=== PATIENT | female | born 1990 | race Caucasian/White ===

== ENCOUNTER 2017-07-02 13:29 | Emergency (ER) | payer BC, MEDICAID ==
--- NOTE | 2017-07-02 14:36 | EDM.PDOC ---
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 Time Seen by Provider: 07/02/17 14:25 Source of Information: Reports: Patient History Limitations: Reports: No Limitations - History of Present Illness INITIAL COMMENTS - FREE TEXT/NARRATIVE: 26 yo female blood type O, RH negative presents with vaginal bleeding/clots early in a . Has not yet had an OB visit. Menses historically are very irregular so is not sure how far along she is. Doesn't know the blood type of the father. Has some pelvic and low back discomfort. 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 Musculoskeletal History: Reports: Fracture, Other (See Below) Other Musculoskeletal History: fractured skull as child Neurological History: Reports: Headaches, Chronic Social & Family History - Tobacco Use Smoking Status *Q: Never Smoker - Recreational Drug Use Recreational Drug Use: No ED ROS GENERAL - Review of Systems Review Of Systems: See Below Constitutional: Reports: No Symptoms HEENT: Reports: No Symptoms Respiratory: Reports: No Symptoms Cardiovascular: Reports: No Symptoms GI/Abdominal: Reports: Abdominal Pain (low abdominal cramps). Denies: Black Stool, Bloody Stool, Constipation, Diarrhea : Reports: No Symptoms Musculoskeletal: Reports: No Symptoms Skin: Reports: No Symptoms Neurological: Reports: No Symptoms Psychiatric: Reports: No Symptoms ED EXAM - Physical Exam Exam: See Below Exam Limited By: No Limitations General Appearance: Alert, WD/WN, No Apparent Distress Eye Exam: Bilateral Eye: Normal Inspection Ears: Normal External Exam, Normal Canal Nose: Normal Inspection, Normal Mucosa, No Blood Throat/Mouth: Normal Inspection Head: Atraumatic, Normocephalic Neck: Normal Inspection Respiratory/Chest: No Respiratory Distress, Lungs Clear, Normal Breath Sounds Cardiovascular: Regular Rate, Rhythm GI/Abdominal Exam: Soft Back Exam: Normal Inspection Extremities: Normal Inspection, Normal Range of Motion, Non-Tender Neurological: Alert, Oriented, CN II-XII Intact, Normal Cognition Psychiatric: Normal Affect, Normal Mood Skin Exam: Warm, Dry, Intact, Normal Color, No Rash Course - Vital Signs Text/Narrative:: Pelvic US-pending miscarriage, no ectopic Last Recorded V/S: Last Vital Signs Temp 36.4 C 07/02/17 14:07 Pulse 89 07/02/17 14:07 Resp 16 07/02/17 14:07 BP 138/78 07/02/17 14:07 Pulse Ox 100 07/02/17 14:07 - Orders/Labs/Meds Orders: Active Orders 24 hr Category Date Time Status OB Transvaginal [US] Stat Exams 07/02/17 14:56 Taken HCG QUALITATIVE,URINE [URCHEM] Stat Lab 07/02/17 14:37 Ordered RH IMMUNE GLOBULIN [BBK] Stat Lab 07/02/17 14:34 Results RHOGAM, MISCARRIAGE [RHIG WORKUP, MISCARRIAGE] [BBK] Lab 07/02/17 14:34 Results Stat UA W/MICROSCOPIC [URIN] Stat Lab 07/02/17 14:37 Ordered Labs: Laboratory Tests 07/02/17 07/02/17 07/02/17 Range/Units 14:34 14:37 14:37 Urine Color Yellow Urine Appearance Clear Urine pH 5.0 (4.5-8.0) Ur Specific [place] 1.020 (1.008-1.030) Urine Protein Negative (NEGATIVE) mg/dL Urine Glucose (UA) Normal (NEGATIVE) mg/dL Urine Ketones Negative (NEGATIVE) mg/dL Urine Occult Blood Negative (NEGATIVE) Urine Nitrite Negative (NEGATIVE) Urine Bilirubin Negative (NEGATIVE) Urine Urobilinogen Normal (NORMAL) mg/dL Ur Leukocyte Esterase Negative (NEGATIVE) Urine RBC Not seen (0-5) Urine WBC Not seen (0-5) Ur Epithelial Cells Few Amorphous Sediment Not seen Urine Bacteria Few Urine Mucus Not seen Urine HCG, Qual Positive H Blood Type (Referred) O neg Rhogam Indicated Yes Departure - Departure Time of Disposition: 16:43 Disposition: Home, Self-Care 01 Condition: Good Clinical Impression: Incomplete - Discharge Information Referrals: PCP,None [Primary Care Provider] - Forms: ED Department Discharge - My Orders Last 24 Hours: My Active Orders 07/02/17 14:34 RH IMMUNE GLOBULIN [BBK] Stat RHOGAM, MISCARRIAGE [RHIG WORKUP, MISCARRIAGE] [BBK] Stat 07/02/17 14:37 HCG QUALITATIVE,URINE [URCHEM] Stat UA W/MICROSCOPIC [URIN] Stat 07/02/17 14:56 OB Transvaginal [US] Stat - Assessment/Plan Last 24 Hours: My Active Orders 07/02/17 14:34 RH IMMUNE GLOBULIN [BBK] Stat RHOGAM, MISCARRIAGE [RHIG WORKUP, MISCARRIAGE] [BBK] Stat 07/02/17 14:37 HCG QUALITATIVE,URINE [URCHEM] Stat UA W/MICROSCOPIC [URIN] Stat 07/02/17 14:56 OB Transvaginal [US] Stat
== END 2017-07-02 17:02 | disposition home or self-care (01) ==
LOC: JP.ED 13:29
DX: O03.4 Incomplete spontaneous abortion without complication (principal); Z88.0 Allergy status to penicillin
CPT/HCPCS: 36415; 76817; 81001; 81025; 99284; J2790

== ENCOUNTER 2025-01-27 09:29 | Day surgery (SDC) | payer BC, OTHER ==
[2025-01-27] MEDS: Lactated Ringers 1,000 ML IV SCH (10:24)
[2025-01-27] MEDS ORDERED: fentaNYL 100 MCG/2 ML SDV ONE (10:57)
[2025-01-27] MEDS ORDERED: Midazolam 1 MG/ML 2 ML SDV ONE (10:57)
[2025-01-27] MEDS ORDERED: Propofol 200 MG/20 ML SDV ONE ×2 (10:57→11:51)
== END 2025-01-27 13:25 | disposition home or self-care (01) ==
LOC: JP.SDS 09:29
PROVIDERS: ATTEND Surgery
DX: D12.5 Benign neoplasm of sigmoid colon (principal); K64.9 Unspecified hemorrhoids; Z88.0 Allergy status to penicillin; Z88.8 Allergy status to other drugs, medicaments and biological substances
CPT/HCPCS: 00811; 45380; 45398; 81025; J2250; J2704; J3010; J7120